=== PATIENT | male | born 1950 | race Caucasian/White ===

== ENCOUNTER → 2021-07-14 14:33 | Outpatient (CLI) | payer MEDICARE, SELFPAY ==
--- NOTE | 2021-07-14 | DI.NM.S_ITS ---
PROCEDURE: NM EXERCISE TREADMILL NON NUC COMPARISON: None. INDICATIONS: Epigastric pain FINDINGS: The patient exercised for 10 minutes and 1 second reaching 12.8 METs, GEORGE -36%. Target heart rate achieved. No angina during the study. No ST changes with exercise. Occasional PACs and PVCs noted. IMPRESSION: Low risk, normal treadmill ECG only stress test with very good exercise tolerance (GEORGE -36%). Dictated by: Rehana Davis MD on 07/15/2021 at 14:17 Approved by: Rehana Davis MD on 07/15/2021 at 14:19
== END ==
PROVIDERS: PCP Student in an Organized Health Care Education/Training Program; Referring Provider Student in an Organized Health Care Education/Training Program; Visit Provider Student in an Organized Health Care Education/Training Program
DX: R07.9 Chest pain, unspecified (principal); R10.13 Epigastric pain
CPT/HCPCS: 93017

== ENCOUNTER → 2023-07-14 09:44 | Outpatient (CLI) | payer MEDICARE, SELFPAY ==
[2023-07-14 19:43] LABS: Alanine Aminotransferase 23 IU/L (<50); Albumin 3.8 g/dL (3.5-5.0); Albumin Globulin Ratio 1.1 (1.0-2.8); Alkaline Phosphatase 91 U/L (38-126); Aspartate Aminotransferase 23 IU/L (17-59); BUN Creatinine Ratio 16.5 (6-22); Bilirubin Total 0.7 mg/dL (0.2-1.3); Blood Urea Nitrogen 14 mg/dL (9-20); Calcium 9.3 mg/dL (8.4-10.2); Carbon Dioxide 33 mmol/L (22-32); Chloride 105 mmol/L (98-107); Cholesterol 163 mg/dL (140-199); Estimated Glomerular Filt Rate > 60 mL/min (>60); Globulin 3.4 g/dL (1.7-4.1); Glucose 94 mg/dL (80-110); HDL Cholesterol 42 mg/dL (40-60); HEMOLYSIS < 15 (0-50); LDL Cholesterol Calculated 98 mg/dL (<100); Potassium 4.5 mmol/L (3.4-5.1); Sodium 140 mmol/L (137-145); Total Protein 7.2 g/dL (6.3-8.2); Triglycerides 113 mg/dL (35-150)
[2023-07-14 19:45] LABS: Add Manual Diff / Slide Review NO; Basophils Absolute Auto 100 /uL (0-100); Eosinophils Absolute Auto 200 /uL (0-450); Eosinophils Percent Auto 2.7 % (2-4); Hematocrit 40.1 % (41-53); Hemoglobin 13.6 g/dL (13.5-17.5); Lymphocytes Absolute Auto 2200 /uL (1100-4500); Lymphocytes Percent Auto 27.9 % (25-40); Mean Corpuscular Hemoglobin 32.5 PG (26-34); Mean Corpuscular Volume 95.6 fL (80-100); Monocytes Absolute Auto 600 /uL (0-900); Monocytes Percent Auto 7.3 % (3-14); Neutrophils Absolute Auto 4800 /uL (1500-7000); Neutrophils Percent Auto 61.1 % (50-75); Platelet Count 410 X10^3/uL (150-400); Red Blood Cell Count 4.19 X10^6/uL (4.5-5.9); Red Cell Distribution Width 12.9 % (11.6-14.8); White Blood Cell Count 7.8 X10^3/uL (4.5-11.0)
[2023-07-14 20:22] LABS: Free T3, Triiodothyronine Free 3.58 pg/mL (2.77-5.27)
[2023-07-14 20:32] LABS: Vitamin B12 > 1000 pg/mL (239-931)
[2023-07-14 20:36] LABS: TSH w/ Reflex to FT4 0.05 uIU/mL (0.47-4.68)
[2023-07-14 21:04] LABS: Free T4, Direct Thyroxine 2.15 ng/dL (0.78-2.19)
== END ==
PROVIDERS: PCP Physician Assistant; Visit Provider Physician Assistant
DX: E03.9 Hypothyroidism, unspecified (principal); E78.00 Pure hypercholesterolemia, unspecified; K90.41 Non-celiac gluten sensitivity; Z79.899 Other long term (current) drug therapy; Z86.2 Personal history of diseases of the blood and blood-forming organs and certain disorders involving the immune mechanism; Z78.9 Other specified health status
CPT/HCPCS: 80053; 80061; 82607; 84439; 84443; 84481; 85025

== ENCOUNTER → 2023-08-21 09:41 | Outpatient (CLI) | payer MEDICARE, SELFPAY ==
[2023-08-21 19:33] LABS: Add Manual Diff / Slide Review NO; Basophils Absolute Auto 100 /uL (0-100); Eosinophils Absolute Auto 400 /uL (0-450); Eosinophils Percent Auto 6.8 % (2-4); Hematocrit 38.4 % (41-53); Hemoglobin 13.1 g/dL (13.5-17.5); Lymphocytes Absolute Auto 1400 /uL (1100-4500); Lymphocytes Percent Auto 25.7 % (25-40); Mean Corpuscular Hemoglobin 32.3 PG (26-34); Mean Corpuscular Volume 95.1 fL (80-100); Monocytes Absolute Auto 500 /uL (0-900); Neutrophils Absolute Auto 3000 /uL (1500-7000); Neutrophils Percent Auto 56.5 % (50-75); Platelet Count 233 X10^3/uL (150-400); Red Blood Cell Count 4.04 X10^6/uL (4.5-5.9); Red Cell Distribution Width 13.7 % (11.6-14.8); White Blood Cell Count 5.3 X10^3/uL (4.5-11.0)
[2023-08-21 20:20] LABS: TSH w/ Reflex to FT4 0.05 uIU/mL (0.47-4.68)
[2023-08-21 20:24] LABS: Ferritin 22 ng/mL (18-464)
[2023-08-21 20:46] LABS: Hep C Virus Ab w/Reflex Quant NEGATIVE s/c (NEGATIVE)
[2023-08-21 21:03] LABS: Free T4, Direct Thyroxine 1.74 ng/dL (0.78-2.19)
== END ==
PROVIDERS: PCP Physician Assistant; Visit Provider Physician Assistant
DX: Z11.59 Encounter for screening for other viral diseases (principal); D64.9 Anemia, unspecified; E03.9 Hypothyroidism, unspecified; Z79.899 Other long term (current) drug therapy
CPT/HCPCS: 82728; 84439; 84443; 84481; 85025; 86803

== ENCOUNTER → 2023-11-22 10:14 | Outpatient (CLI) | payer MEDICARE, SELFPAY ==
[2023-11-22 21:19] LABS: Free T4, Direct Thyroxine 1.54 ng/dL (0.78-2.19)
== END ==
PROVIDERS: PCP Physician Assistant; Visit Provider Physician Assistant
DX: E03.9 Hypothyroidism, unspecified (principal)
CPT/HCPCS: 84439; 84443

== ENCOUNTER → 2024-12-18 10:19 | Outpatient (CLI) | payer MEDICARE, BC, SELFPAY ==
[2024-12-18 18:45] LABS: Add Manual Diff / Slide Review NO; Hematocrit 40.5 % (41-53); Hemoglobin 13.9 g/dL (13.5-17.5); Lymphocytes Absolute Auto 1700 /uL (1100-4500); Mean Corpuscular HGB Conc 34.3 % (30-36); Mean Corpuscular Hemoglobin 32.8 PG (26-34); Mean Corpuscular Volume 95.9 fL (80-100); Platelet Count 253 X10^3/uL (150-400)
[2024-12-18 18:50] LABS: HEMOLYSIS < 15 (0-50); Iron 157 ug/dL (49-181)
[2024-12-18 19:04] LABS: Percent Iron Saturation 51 % (20-50); Total Iron Binding Capacity 310 ug/dL (261-462); Transferrin 250 mg/dL (206-381)
[2024-12-18 19:06] LABS: Alanine Aminotransferase 18 IU/L (<50); Albumin 4.4 g/dL (3.5-5.0); Alkaline Phosphatase 75 U/L (38-126); Blood Urea Nitrogen 14 mg/dL (9-20); Carbon Dioxide 28 mmol/L (22-32); Chloride 106 mmol/L (98-107); Estimated Glomerular Filt Rate > 60 mL/min (>60); HEMOLYSIS < 15 (0-50); Potassium 4.5 mmol/L (3.4-5.1); Sodium 142 mmol/L (137-145)
[2024-12-18 19:23] LABS: TSH w/ Reflex to FT4 2.65 uIU/mL (0.47-4.68)
[2024-12-18 20:28] LABS: Albumin Globulin Ratio 1.3 (1.0-2.8); Calcium 9.5 mg/dL (8.4-10.2); Cholesterol 192 mg/dL (140-199); Globulin 3.5 g/dL (1.7-4.1); Glucose 96 mg/dL (70-99); HDL Cholesterol 43 mg/dL (40-60); Total Protein 7.9 g/dL (6.3-8.2); Triglycerides 106 mg/dL (35-150)
== END ==
PROVIDERS: PCP Physician Assistant; Visit Provider Physician Assistant
DX: D64.9 Anemia, unspecified (principal); E03.9 Hypothyroidism, unspecified; Z13.6 Encounter for screening for cardiovascular disorders; Z12.11 Encounter for screening for malignant neoplasm of colon; Z79.899 Other long term (current) drug therapy; F41.9 Anxiety disorder, unspecified; E78.00 Pure hypercholesterolemia, unspecified
CPT/HCPCS: 80053; 80061; 83540; 83550; 84443; 85025